=== PATIENT | female | born 1995 | race African-American/Black ===

== ENCOUNTER 2016-10-07 02:43 | Emergency (ER) | payer MEDICAID, OTHER ==
[~2016-10-07 02:43] MED LIST: FLEX10TA PO; NAPR550 PO; Z.0.NO CURRENT MEDS
[2016-10-07 02:48] VITALS: BP 123/74; PULSE 97; RESP 16; TEMP 97.5; O2SAT 100
--- NOTE | 2016-10-07 03:29 | PD ---
HPI Chief Complaint: GI Complaint Time Seen by Provider: 02:58 Travel History International Travel<30 days: No Contact w/Intl Traveler<30days: No Traveled to known affect area: No History of Present Illness HPI The patient is a 21 year old female who presents to the [facility] emergency department with a history of history of forceful bowel movements that happen randomly for the last 8 years. It comes and goes. It is occurring more frequently over the last 2 years. She denies having a PCP. When this occurs, she usually has abdominal pain before it happens. She reports that she also gets gassy before this happens. It is a cramping sensation. It has lasted for up to a week at a time. The pain occurs in the left lower quadrant of the abdomen and across the pelvis. She denies any nausea or vomiting. She denies any blood in the stool. The patient otherwise on review of systems reports that she does have a history of constantly feeling cold. The patient denies having any recent weight gain. She reports that she is attempting to lose weight. The patient reports that she does have a family history of Crohn's disease and lupus. Otherwise, she denies any recent fevers, cough, congestion, neck pain, chest pain, shortness of breath, vomiting,urinary symptoms, or neurologic symptoms. [facility] Past Medical History Narrative Medical The patient's past medical history is significant for asthma. Asthma: Yes (childhood history) Developmental Delay: No Diminished Hearing: No Immunizations Current: Yes ?: Not LMP: 09/12/2016 : 0 Para: 0 Past Surgical History Narrative Surgical The patient's past surgical history is significant for none. Surgical History: No Previous Surgery Family History Narrative Family History lupus and Crohn's disease Social History Alcohol Use: No Tobacco Use: No Substance Use: No Allergies-Medications (Allergen,Severity, Reaction): Coded Allergies: No Known Allergies (Verified , 09/06/12) Reported Meds & Prescriptions Reported Meds & Active Scripts Active Bentyl (Dicyclomine HCl) 10 Mg Cap 10 Mg PO QID PRN Review of Systems Except as stated in HPI: all other systems reviewed are Neg General / Constitutional: No: Fever Eyes: No: Visual changes HENT: No: Headaches Cardiovascular: No: Chest Pain or Discomfort Respiratory: No: Shortness of Breath Gastrointestinal: Positive: Diarrhea, Abdominal Pain, No: Nausea, Vomiting, Hematemesis, Hematochezia, Changes in Bowel Habits, Loss of Appetite Genitourinary: No: Dysuria Musculoskeletal: No: Pain Skin: No Rash Neurologic: No: Weakness Psychiatric: No: Depression Endocrine: No: Polydipsia Hematologic/Lymphatic: No: Easy Bruising Physical Exam Narrative General: The patient is a well-developed well-nourished female in no acute distress. Head and Neck exam: Head is normocephalic atraumatic. Eyes: EOMI, pupils are equal round and reactive to light. Nose: Midline septum with pink mucous membranes Mouth: Dentition unremarkable. Moist mucus membranes. Posterior oropharynx is not erythematous. No tonsillar hypertrophy. Uvula midline. Airway patent. Neck: No palpable lymphadenopathy. No nuchal rigidity. No thyromegaly. Cardiovascular: Regular rate and rhythm without murmurs, gallops, or rubs. Lungs: Clear to auscultation bilaterally. No wheezes, rhonchi, or rales. Abdomen: Soft, without tenderness to palpation in all 4 quadrants of the abdomen. No guarding, rebound, or rigidity. Bowel sounds are audible. No tenderness on palpation of McBurney's point. Negative Mazama sign. Extremities: No clubbing, cyanosis, or edema. 2+ pulses in all 4 extremities. Back: No spinous process tenderness to palpation. No costovertebral angle tenderness to palpation. Neurologic Exam: Grossly nonfocal. Skin Exam: No rash noted. Intact skin that is warm and dry. Data Data Last Documented VS Vital Signs Date Time Temp Pulse Resp B/P Pulse Ox O2 Delivery O2 Flow Rate FiO2 10/07/16 02:48 97.5 97 16 123/74 100 Room Air Orders Urinalysis - C+S If Indicated (10/07/16 02:58) Ed Urine Pregnancytest Poc (10/07/16 02:58) Complete Blood Count With Diff (10/07/16 03:29) Comprehensive Metabolic Panel (10/07/16 03:29) Lipase (10/07/16 03:29) Westergren Sedimentation Rate (10/07/16 03:29) Magnesium (Mg) (10/07/16 03:29) Thyroid Stimulating Hormone (10/07/16 03:29) Iv Access Insert/Monitor (10/07/16 03:29) Ecg Monitoring (10/07/16 03:29) Oximetry (10/07/16 03:29) Labs Laboratory Tests Test 10/07/16 10/07/16 03:55 04:00 White Blood Count 10.2 TH/MM3 Red Blood Count 4.39 MIL/MM3 Hemoglobin 12.4 GM/DL Hematocrit 36.3 % Mean Corpuscular Volume 82.8 FL Mean Corpuscular Hemoglobin 28.4 PG Mean Corpuscular Hemoglobin 34.3 % Concent Red Cell Distribution Width 13.6 % Platelet Count 334 TH/MM3 Mean Platelet Volume 7.8 FL Neutrophils (%) (Auto) 67.9 % Lymphocytes (%) (Auto) 24.4 % Monocytes (%) (Auto) 5.5 % Eosinophils (%) (Auto) 1.5 % Basophils (%) (Auto) 0.7 % Neutrophils # (Auto) 6.9 TH/MM3 Lymphocytes # (Auto) 2.5 TH/MM3 Monocytes # (Auto) 0.6 TH/MM3 Eosinophils # (Auto) 0.2 TH/MM3 Basophils # (Auto) 0.1 TH/MM3 CBC Comment DIFF FINAL Differential Comment Erythrocyte Sedimentation Rate 39 mm/hr Sodium Level 136 MEQ/L Potassium Level 4.1 MEQ/L Chloride Level 103 MEQ/L Carbon Dioxide Level 26.1 MEQ/L Anion Gap 7 MEQ/L Blood Urea Nitrogen 13 MG/DL Creatinine 1.00 MG/DL Estimat Glomerular Filtration 83 ML/MIN Rate Random Glucose 78 MG/DL Calcium Level 8.6 MG/DL Magnesium Level 1.9 MG/DL Total Bilirubin 0.4 MG/DL Aspartate Amino Transf 23 U/L (AST/SGOT) Alanine Aminotransferase 18 U/L (ALT/SGPT) Alkaline Phosphatase 69 U/L Total Protein 8.0 GM/DL Albumin 3.8 GM/DL Lipase 213 U/L Thyroid Stimulating Hormone 5.350 uIU/ML 3rd Gen Urine Color YELLOW Urine Turbidity CLEAR Urine pH 5.5 Urine Specific [place] 1.013 Urine Protein NEG mg/dL Urine Glucose (UA) NEG mg/dL Urine Ketones NEG mg/dL Urine Occult Blood NEG Urine Nitrite NEG Urine Bilirubin NEG Urine Urobilinogen LESS THAN 2.0 MG/DL Urine Leukocyte Esterase TRACE Urine RBC LESS THAN 1 /hpf Urine WBC 1 /hpf Urine Squamous Epithelial <1 /hpf Cells Urine Bacteria RARE /hpf Urine Mucus FEW /lpf Microscopic Urinalysis Comment CULT NOT INDICATED MDM Medical Decision Making Medical Screen Exam Complete: Yes Emergency Medical Condition: Yes Medical Record Reviewed: Yes Differential Diagnosis Celiac disease, versus inflammatory bowel disease, versus irritable bowel syndrome, versus endocrine disorder such as hypothyroid Narrative Course During the course of the patients emergency department visit, the patients history, examination, and differential diagnosis were reviewed with the patient. The patient had IV access obtained and blood work sent for analysis. The patient was placed on a senior wind energy consultant with oximetry and blood pressure monitoring. The patients laboratory studies were reviewed and remarkable for a CBC that is within normal limits, sedimentation rate is 39, slightly elevated, CMP is remarkable for a GFR of 83, lipase 213, TSH 5.35, urinalysis shows trace leukocyte esterase, rare bacteria, culture not indicated. Given the fact that the patient has no abdominal pain at this time on examination, CT scan of the abdomen and pelvis would not be indicated. I recommended the patient that she follow-up with a specialty foods cook for additional testing including consideration of colonoscopy with biopsy given her family history of Crohn's disease. The patient was provided an outpatient lab slip for further testing regarding her elevated TSH. The patient is resting comfortably and feels better, is alert and in no distress. The patients results and examination findings were discussed with the patient. The repeat examination is unremarkable and benign. The history, exam, diagnostic testing, and current condition do not suggest any significant pathology to warrant further testing, continued ED treatment, admission, or surgical evaluation at this point. The vital signs have been stable. The patient does not have uncontrollable pain, intractable vomiting, or other significant symptoms. The patient's condition is stable and appropriate for discharge. The patient will pursue further outpatient evaluation with a primary care physician or other designated or consulting physician as indicated in the discharge instructions. The patient expressed understanding and was agreeable with this plan. Diagnosis Primary Impression: Intermittent lower abdominal pain Additional Impressions: Elevated sedimentation rate Elevated TSH Referrals: Jazmín Baldwin MD 1 week [facility] 2 days Patient Instructions: Abdominal Pain (ED), General Instructions, Hypothyroidism (ED) Additional Instructions: The patient is provided an outpatient lab slip for a repeat TSH with free T3-T4 in one week. Med/Other Pt SpecificInfo: Prescription(s) given Scripts Dicyclomine (Bentyl)10 Mg Cap10 Mg PO QID PRN (colon spasm) #16 CAP Ref 0 Prov:Marian Vo MD 10/07/16 Disposition: 01 DISCHARGE HOME Condition: Stable Marian Vo MD Oct 07, 2016 03:29
[2016-10-07] MEDS ORDERED: DICY10 PO (04:04)
[2016-10-07 04:06] LABS: AUTOMATED NEUTROPHIL # 6.9 TH/MM3 (1.8-7.7); BASOPHIL # 0.1 TH/MM3 (0-0.2); BASOPHIL % 0.7 % (0.0-2.0); EOSINOPHIL # 0.2 TH/MM3 (0-0.4); EOSINOPHIL % 1.5 % (0.0-4.0); HEMATOCRIT 36.3 % (35.0-46.0); HEMO FLAGS DIFF FINAL; LYMPH % 24.4 % (9.0-44.0); LYMPHOCYTE # 2.5 TH/MM3 (1.0-4.8); MEAN CELL VOLUME 82.8 FL (80.0-100.0); MEAN CORPUSCULAR HEMOGLOBIN 28.4 PG (27.0-34.0); MEAN CORPUSCULAR HGB CONC 34.3 % (32.0-36.0); MONO % 5.5 % (0.0-8.0); NEUT % 67.9 % (16.0-70.0); PLATELET COUNT 334 TH/MM3 (150-450); RED BLOOD COUNT 4.39 MIL/MM3 (4.00-5.30); RED CELL DISTRIBUTION WIDTH 13.6 % (11.6-17.2); WHITE BLOOD COUNT 10.2 TH/MM3 (4.0-11.0)
[2016-10-07 04:16] LABS: BACTERIA, URINE RARE /hpf; BLOOD, URINE NEG (NEG); COMMENT (UR) CULT NOT INDICATED; CULTURE IF INDICATED CULT NOT INDICATED; GLUCOSE,URINE NEG (NEG); KETONE, URINE NEG (NEG); MUCUS URINE FEW /lpf (OCC); NITRITE,URINE NEG (NEG); PH, URINE 5.5 (5.0-8.5); SQUAMOUS EPITHELIAL CELL URINE <1 /hpf (0-5); URINE COLOR YELLOW (YELLW/STRAW)
[2016-10-07 04:44] LABS: ALT (GPT) 18 U/L (10-53); ANION GAP 7 MEQ/L (5-15); AST (GOT) 23 U/L (15-37); BICARBONATE 26.1 MEQ/L (21.0-32.0); BLOOD UREA NITROGEN 13 MG/DL (7-18); CHLORIDE 103 MEQ/L (98-107); GLOMERULAR FILTRATION RATE 83 ML/MIN (>89); MAGNESIUM 1.9 MG/DL (1.5-2.5); SODIUM (NA) 136 MEQ/L (136-145)
[2016-10-07 04:45] LABS: POTASSIUM 4.1 MEQ/L (3.5-5.1)
[2016-10-07 04:48] LABS: ALKALINE PHOSPHATASE 69 U/L (45-117); TOTAL BILIRUBIN ADULT 0.4 MG/DL (0.2-1.0)
== END 2016-10-07 05:47 | disposition home or self-care (01) ==
LOC: NEPE 02:43
DX: R10.30 Lower abdominal pain, unspecified (principal); R70.0 Elevated erythrocyte sedimentation rate; R94.6 Abnormal results of thyroid function studies; J45.909 Unspecified asthma, uncomplicated; Z79.899 Other long term (current) drug therapy
CPT/HCPCS: 80053; 81001; 83690; 83735; 84443; 84703; 85025; 85652; 99283